=== PATIENT | female | born 1990 | race Caucasian/White ===

== ENCOUNTER → 2023-02-01 | Outpatient (REF) | LOC: M LAB 12:10 | PROVIDERS: ATTEND Nurse Practitioner Adult Health | DX: Z02.89 Encounter for other administrative examinations (principal) ==

== ENCOUNTER → 2023-03-08 | Outpatient (CLI) | payer OTHER ==
[2023-03-08 07:23] LABS: BASO % 0.5 % (0.0-1.0); EOS # 0.1 10^3/uL (0.0-0.5); EOS % 1.8 % (0.0-3.0); HEMATOCRIT 43.5 % (36.0-47.0); HEMOGLOBIN 14.8 g/dl (12.0-15.5); LYMPH # 2.1 10^3/uL (1.5-5.0); MEAN CORPUSCULAR HEMOGLOBIN 28.5 pg (27.0-33.0); MEAN CORPUSCULAR VOLUME 83.7 fl (80.0-96.0); MONO # 0.6 10^3/uL (0.0-0.8); MONO % 9.7 % (2.0-8.0); NEUTROPHILS # 3.2 10^3/uL (1.5-8.5); NEUTROPHILS % 52.7 % (36.0-66.0); PLATELET COUNT, AUTOMATED 291 10^3/uL (150-450); WHITE BLOOD COUNT 6.1 10^3/uL (4.0-10.0)
[2023-03-08 07:32] LABS: HEMOGLOBIN A1c 4.8 % (4.0-6.0)
[2023-03-08 07:53] LABS: ALBUMIN 3.9 G/DL (3.2-5.2); ALKALINE PHOSPHATASE 65 U/L (46-116); ALT/SGPT 35 U/L (7.0-40); AST/SGOT 23 U/L (<34); BILIRUBIN,TOTAL 0.5 MG/DL (0.3-1.2); BLOOD UREA NITROGEN 17 MG/DL (9-23); CALCIUM LEVEL 9.2 MG/DL (8.5-10.1); CARBON DIOXIDE LEVEL 27 MMOL/L (20-31); CHLORIDE LEVEL 106 MMOL/L (98-107); CHOLESTEROL LEVEL 198 MG/DL (<200); CREATININE FOR GFR 0.92 MG/DL (0.55-1.30); GLOMERULAR FILTRATION RATE > 60.0 (>60); GLUCOSE, FASTING 90 MG/DL (60-100); HDL CHOLESTEROL 48.2 MG/DL (>40); NON-HDL-C 149.8 MG/DL; POTASSIUM SERUM 4.3 MMOL/L (3.5-5.1); SODIUM LEVEL 139 MMOL/L (136-145); TOTAL PROTEIN 6.6 G/DL (5.7-8.2); TRIGLYCERIDES LEVEL 109 MG/DL (<150)
[2023-03-08 07:54] LABS: FOLLICLE STIMULATING HORMONE 9.4 mIU/ML; FREE T4 1.32 NG/DL (0.89-1.76)
[2023-03-08 07:55] LABS: LUTEINIZING HORMONE 19.3 mIU/ML; THYROID STIMULATING HORMONE 1.508 uIU/ML (0.55-4.78)
[2023-03-11 21:07] LABS: INSULIN FREE 13 uU/mL (.); INSULIN TOTAL2 13 uU/mL (.); TESTOSTERONE FREE (DIRECT) 3.4 pg/mL (0.0-4.2)
== END ==
LOC: M LAB 06:38
PROVIDERS: ATTEND Physician Assistant
DX: E28.2 Polycystic ovarian syndrome (principal); Z13.29 Encounter for screening for other suspected endocrine disorder; Z13.220 Encounter for screening for lipoid disorders

== ENCOUNTER → 2023-07-17 | Outpatient (REF) | LOC: M EMP 07:42 | PROVIDERS: ATTEND Family Medicine | DX: Z11.52 Encounter for screening for COVID-19 (principal) ==

== ENCOUNTER → 2023-12-12 | Outpatient (CLI) | payer OTHER ==
[2023-12-12 17:30] LABS: HEMATOCRIT 43.7 % (36.0-47.0); HEMOGLOBIN 15.2 g/dl (12.0-15.5); MEAN CORPUSCULAR HEMOGLOBIN 29.2 pg (27.0-33.0); MEAN CORPUSCULAR HGB CONC 34.8 g/dl (32.0-36.5); PLATELET COUNT, AUTOMATED 349 10^3/uL (150-450); WHITE BLOOD COUNT 11.7 10^3/uL (4.0-10.0)
[2023-12-12 17:59] LABS: URIC ACID 2.9 MG/DL (3.1-7.8)
[2023-12-12 18:01] LABS: LDH LACTATE DEHYDROGENASE 190 U/L (120-246)
[2023-12-12 18:02] LABS: ALT/SGPT 62 U/L (7.0-40); AST/SGOT 42 U/L (<34); BILIRUBIN,TOTAL 0.6 MG/DL (0.3-1.2); CREATININE FOR GFR 0.57 MG/DL (0.55-1.30); CREATININE,RANDOM URINE 60.1 MG/DL; GLOMERULAR FILTRATION RATE > 60.0 (>60)
[2023-12-12 18:06] LABS: TOTAL PROTEIN,RANDOM URINE < 6.0 MG/DL (0.0-14.0)
[2023-12-12 18:34] LABS: HIV 1&2 SCREEN NEGATIVE (NEGATIVE)
[2023-12-12 18:43] LABS: HEPATITIS C VIRUS ABY INDEX 0.04 INDEX (<0.8)
[2023-12-12 20:46] LABS: GC DNA AMPLIFICATION NEGATIVE (NEGATIVE)
== END ==
LOC: M PLALAB 15:43
PROVIDERS: ATTEND Advanced Practice Midwife
DX: Z34.01 Encounter for supervision of normal first pregnancy, first trimester (principal)

== ENCOUNTER → 2024-02-15 | Outpatient (CLI) | payer OTHER ==
[~2024-02-15] MED LIST: ASPI-427 PO; LABE200T5 PO; PRENTAB9 PO
== END ==
LOC: M WHC 14:53
PROVIDERS: ATTEND Obstetrics & Gynecology
DX: Z36.2 Encounter for other antenatal screening follow-up (principal); Z3A.20 20 weeks gestation of pregnancy

== ENCOUNTER → 2024-02-21 | Outpatient (CLI) | payer OTHER ==
[2024-02-21 17:57] LABS: APPEARANCE, URINE CLEAR (CLEAR); BACTERIA, URINE AUTO 2+ (NEGATIVE); BILIRUBIN, URINE AUTO NEGATIVE (NEGATIVE); BLOOD, URINE BLOOD NEGATIVE (NEGATIVE); COLOR, URINE STRAW (YELLOW); GLUCOSE, URINE (UA) AUTO NEGATIVE (NEGATIVE); KETONE, URINE AUTO NEGATIVE (NEGATIVE); LEUKOCYTE ESTERASE, URINE AUTO NEGATIVE (NEGATIVE); NITRITE, URINE AUTO NEGATIVE (NEGATIVE); PROTEIN, URINE AUTO NEGATIVE (NEGATIVE); RBC, URINE AUTO 1 /HPF (0-3); SPECIFIC GRAVITY URINE AUTO 1.006 (1.002-1.035); SQUAMOUS EPITHELIAL CELL UR AU 0 /HPF (0-6); UROBILINOGEN, URINE AUTO 0.2 mg/dL (0.0-2.0); WBC, URINE AUTO 1 /HPF (0-3)
== END ==
LOC: M PLALAB 15:36
PROVIDERS: ATTEND Obstetrics & Gynecology
DX: R30.0 Dysuria (principal)

== ENCOUNTER 2024-02-22 21:08 | Emergency (ER) | payer OTHER ==
[~2024-02-22] VITALS: Ht 152.4 cm; Wt 84.0 kg
[2024-02-22 21:08] VITALS: BP 145/79; TEMP 98; O2SAT 99
[2024-02-22] MEDS ORDERED: LABE200T5 PO (21:44)
[2024-02-22] MEDS ORDERED: PRENTAB9 PO (21:44)
[2024-02-22] MEDS ORDERED: ASPI-427 PO (21:44)
== END 2024-02-22 21:30 | disposition left against medical advice (07) ==
LOC: M ED 21:08
DX: Z53.21 Procedure and treatment not carried out due to patient leaving prior to being seen by health care provider (principal)

== ENCOUNTER 2024-02-22 21:20 | Outpatient (CLI) | payer OTHER ==
[~2024-02-22] VITALS: Ht 152.4 cm; Wt 84.0 kg
[2024-02-22 21:37] VITALS: BP 128/84
[2024-02-22] MEDS ORDERED: LABE200T5 PO (21:44)
[2024-02-22] MEDS ORDERED: PRENTAB9 PO (21:44)
[2024-02-22] MEDS ORDERED: ASPI-427 PO (21:44)
[2024-02-22 22:26] LABS: APPEARANCE, URINE CLEAR (CLEAR); BACTERIA, URINE AUTO 1+ (NEGATIVE); BILIRUBIN, URINE AUTO NEGATIVE (NEGATIVE); BLOOD, URINE BLOOD 1+ (NEGATIVE); COLOR, URINE YELLOW (YELLOW); GLUCOSE, URINE (UA) AUTO 1+ mg/dL (NEGATIVE); KETONE, URINE AUTO NEGATIVE (NEGATIVE); LEUKOCYTE ESTERASE, URINE AUTO NEGATIVE (NEGATIVE); NITRITE, URINE AUTO NEGATIVE (NEGATIVE); PROTEIN, URINE AUTO NEGATIVE (NEGATIVE); RBC, URINE AUTO 2 /HPF (0-3); SPECIFIC GRAVITY URINE AUTO 1.008 (1.002-1.035); SQUAMOUS EPITHELIAL CELL UR AU 0 /HPF (0-6); UROBILINOGEN, URINE AUTO 0.2 mg/dL (0.0-2.0); WBC, URINE AUTO 2 /HPF (0-3)
[2024-02-22] MEDS: ACETAMINOPHEN TAB 650MG DOSE (2X325MG) PO ONE (23:00)
[2024-02-22 23:28] LABS: Trichomonas vaginalis (AMP) NOT DETECTED (NEGATIVE)
[2024-02-22] MEDS: ACETAMINOPHEN 500 MG TAB PO ONE (23:34)
[2024-02-22 23:51] LABS: GC DNA AMPLIFICATION NEGATIVE (NEGATIVE)
[2024-02-23 01:13] LABS: BASO % 0.2 % (0.0-1.0); EOS # 0.1 10^3/uL (0.0-0.5); EOS % 0.7 % (0.0-3.0); HEMATOCRIT 38.4 % (36.0-47.0); HEMOGLOBIN 13.7 g/dl (12.0-15.5); LYMPH # 2.5 10^3/uL (1.5-5.0); LYMPH % 18.7 % (24.0-44.0); MEAN CORPUSCULAR HEMOGLOBIN 30.3 pg (27.0-33.0); MEAN CORPUSCULAR HGB CONC 35.7 g/dl (32.0-36.5); MONO # 1.1 10^3/uL (0.0-0.8); MONO % 7.9 % (2.0-8.0); NEUTROPHILS # 9.6 10^3/uL (1.5-8.5); NEUTROPHILS % 71.6 % (36.0-66.0); RED BLOOD COUNT 4.52 10^6/uL (4.00-5.40); WHITE BLOOD COUNT 13.4 10^3/uL (4.0-10.0)
[2024-02-23 01:34] LABS: ALKALINE PHOSPHATASE 53 U/L (46-116); ALT/SGPT 22 U/L (7.0-40); AST/SGOT 17 U/L (<34); BILIRUBIN,TOTAL 0.3 MG/DL (0.3-1.2); BLOOD UREA NITROGEN 9 MG/DL (9-23); CALCIUM LEVEL 8.9 MG/DL (8.5-10.1); CARBON DIOXIDE LEVEL 22 MMOL/L (20-31); CHLORIDE LEVEL 106 MMOL/L (98-107); CREATININE FOR GFR 0.46 MG/DL (0.55-1.30); GLOMERULAR FILTRATION RATE > 60.0 (>60); GLUCOSE, FASTING 89 MG/DL (60-100); POTASSIUM SERUM 3.9 MMOL/L (3.5-5.1); SODIUM LEVEL 136 MMOL/L (136-145)
[2024-02-23] MEDS: SIMETHICONE 80MG CHEW TAB PO PRN (01:56)
== END 2024-02-23 01:39 | disposition home or self-care (01) ==
LOC: M LDO 21:20
PROVIDERS: ATTEND Obstetrics & Gynecology
DX: O26.892 Other specified pregnancy related conditions, second trimester (principal); O10.012 Pre-existing essential hypertension complicating pregnancy, second trimester; R10.2 Pelvic and perineal pain; Z3A.21 21 weeks gestation of pregnancy
CPT/HCPCS: 76815; 76820; 80053; 81001; 85025; 87661; 87810; 87850; G0463

== ENCOUNTER → 2024-04-04 | Outpatient (CLI) | payer OTHER | LOC: M RAD 15:21 | PROVIDERS: ATTEND Advanced Practice Midwife | DX: O10.012 Pre-existing essential hypertension complicating pregnancy, second trimester (principal); Z3A.27 27 weeks gestation of pregnancy ==

== ENCOUNTER → 2024-04-09 | Outpatient (CLI) | payer OTHER | LOC: M RAD 06:20 | PROVIDERS: ATTEND Advanced Practice Midwife | DX: O26.899 Other specified pregnancy related conditions, unspecified trimester (principal); Z3A.00 Weeks of gestation of pregnancy not specified ==

== ENCOUNTER → 2024-04-19 | Outpatient (CLI) | payer OTHER ==
[2024-04-19 13:58] LABS: HEMATOCRIT 37.7 % (36.0-47.0); HEMOGLOBIN 13.3 g/dl (12.0-15.5); MEAN CORPUSCULAR HEMOGLOBIN 30.2 pg (27.0-33.0); MEAN CORPUSCULAR HGB CONC 35.3 g/dl (32.0-36.5); MEAN CORPUSCULAR VOLUME 85.7 fl (80.0-96.0); PLATELET COUNT, AUTOMATED 280 10^3/uL (150-450); WHITE BLOOD COUNT 9.2 10^3/uL (4.0-10.0)
[2024-04-19 14:03] LABS: GLUCOSE CHALLENGE TEST 1 HOUR 116 MG/DL (LESS THAN 140)
[2024-04-19 14:04] LABS: LIPASE 46 U/L (12-53)
[2024-04-19 14:05] LABS: AMYLASE 106 U/L (30-118)
[2024-04-19 14:33] LABS: HIV 1&2 SCREEN NEGATIVE (NEGATIVE)
== END ==
LOC: M PLALAB 10:40
PROVIDERS: ATTEND Advanced Practice Midwife
DX: O10.012 Pre-existing essential hypertension complicating pregnancy, second trimester (principal); Z3A.00 Weeks of gestation of pregnancy not specified

== ENCOUNTER → 2024-05-22 | Outpatient (CLI) | payer OTHER ==
[2024-05-22 12:14] LABS: HEMOGLOBIN 12.6 g/dl (12.0-15.5); MEAN CORPUSCULAR HEMOGLOBIN 28.8 pg (27.0-33.0); MEAN CORPUSCULAR HGB CONC 34.1 g/dl (32.0-36.5); MEAN CORPUSCULAR VOLUME 84.7 fl (80.0-96.0); PLATELET COUNT, AUTOMATED 283 10^3/uL (150-450); RED BLOOD COUNT 4.37 10^6/uL (4.00-5.40); WHITE BLOOD COUNT 7.3 10^3/uL (4.0-10.0)
[2024-05-22 12:19] LABS: FREE T4 1.16 NG/DL (0.89-1.76)
[2024-05-22 12:20] LABS: THYROID STIMULATING HORMONE 0.688 uIU/ML (0.55-4.78)
== END ==
LOC: M PLALAB 08:03
PROVIDERS: ATTEND Obstetrics & Gynecology
DX: R00.2 Palpitations (principal)

== ENCOUNTER → 2024-05-29 | Outpatient (REF) | payer OTHER | LOC: M SFHCWAGY 17:15 | PROVIDERS: ATTEND Specialist | DX: O10.013 Pre-existing essential hypertension complicating pregnancy, third trimester (principal) ==

== ENCOUNTER → 2024-06-04 | Outpatient (CLI) | payer OTHER | LOC: M WHC 12:28 | PROVIDERS: ATTEND Obstetrics & Gynecology | DX: O10.919 Unspecified pre-existing hypertension complicating pregnancy, unspecified trimester (principal); Z3A.36 36 weeks gestation of pregnancy ==

== ENCOUNTER → 2024-08-02 | Outpatient (REF) | payer OTHER ==
[~2024-08-02] MED LIST changes: +BAYE81TA10 PO; +CLAR10CA3 PO; +COLA100C5 PO; +IBUP80TA PO; +LABE300T28 PO; +VITA100093 PO
== END ==
LOC: M LAB REF 14:36
PROVIDERS: ATTEND Physician Assistant
DX: Z20.828 Contact with and (suspected) exposure to other viral communicable diseases (principal)

== ENCOUNTER → 2025-09-12 | Outpatient (CLI) | payer OTHER ==
[~2025-09-12] MED LIST changes: -LABE200T5 PO; +LABE200T86 PO
== END ==
LOC: M LAB 15:09
PROVIDERS: ATTEND Physician Assistant
DX: Z36.89 Encounter for other specified antenatal screening (principal); Z3A.01 Less than 8 weeks gestation of pregnancy

== ENCOUNTER → 2025-09-14 | Outpatient (CLI) | payer OTHER | LOC: M LAB 09:11 | PROVIDERS: ATTEND Physician Assistant | DX: Z36.89 Encounter for other specified antenatal screening (principal); Z3A.01 Less than 8 weeks gestation of pregnancy; R11.10 Vomiting, unspecified ==